=== PATIENT | female | born 1965 | race Caucasian/White ===

== ENCOUNTER 2020-03-20 19:05 | Emergency (ER) | payer OTHER ==
[~2020-03-20] VITALS: Ht 170.2 cm; Wt 84.8 kg
[~2020-03-20 19:05] MED LIST: NORCO 5-325 TA1 EACH PO
[2020-03-20] MEDS ORDERED: KEFLEX500 M1 PO (19:54)
[2020-03-20] MEDS ORDERED: BACTRIM DS TAB1 EACH PO (19:54)
[2020-03-20] MEDS ORDERED: HYDROCODON-ACE1 EAC7 PO (19:54)
[2020-03-20 20:06] VITALS: BP 152/70
== END 2020-03-20 20:07 | disposition home or self-care (01) ==
LOC: M.ERS 19:05
DX: L03.114 Cellulitis of left upper limb (principal); E11.9 Type 2 diabetes mellitus without complications; F17.210 Nicotine dependence, cigarettes, uncomplicated; Z90.710 Acquired absence of both cervix and uterus